=== PATIENT | male | born 1950 | race Caucasian/White ===

== ENCOUNTER 2018-05-25 13:32 | Inpatient (IN) | payer OTHER, MEDICARE ==
[~2018-05-25] VITALS: Ht 185.4 cm; Wt 104.6 kg
[2018-05-25 13:33] VITALS: BP 117/57
[2018-05-25 15:09] LABS: BASOPHILS 0.7 % (0.0-2.0); EOSINOPHILS 4.2 % (0.0-3.0); HEMATOCRIT 31.7 % (42.0-52.0); HEMOGLOBIN 10.2 gm/dL (14.0-18.0); LYMPHOCYTES 14.7 % (24.0-44.0); MCH 24.4 pg (26.0-34.0); MCHC 32.1 g/dL (28.0-37.0); MCV 76.1 fL (80.0-100.0); MONOCYTES 9.1 % (1.0-8.0); PLATELET COUNT 245 thou/uL (150-400); POLYS 71.3 % (36.0-66.0); RBC 4.17 mil/uL (4.50-6.00); RDW 18.8 % (10.5-14.5)
[2018-05-25 15:16] LABS: CALCIUM 9.2 mg/dL (8.5-10.1); CREATININE 0.8 mg/dL (0.7-1.3); POTASSIUM 4.5 mmol/L (3.5-5.1)
[2018-05-25 15:21] LABS: ALBUMIN 2.9 g/dL (3.4-5.0); TOTAL BILIRUBIN 0.2 mg/dL (<0.1-1.0); TOTAL PROTEIN 6.7 g/dL (6.4-8.2)
[2018-05-25 16:03] VITALS: BP 118/56
[2018-05-25] MEDS ORDERED: LIORESAL 10 MG10 MG PO (16:06)
[2018-05-25] MEDS ORDERED: ENOXAPARIN40 MG/0.1 SUBQ (16:06)
[2018-05-25] MEDS ORDERED: VITAMIN C500 M1 PO (16:06)
[2018-05-25] MEDS ORDERED: CARDIZEM CD240 MG PO (16:06)
[2018-05-25] MEDS ORDERED: PROBIOTIC1 EAC1 PO (16:07)
[2018-05-25] MEDS ORDERED: GENTAMICIN 0.1%15 G2 TOP (16:07)
[2018-05-25] MEDS ORDERED: FEOSOL325 M1 PO (16:07)
[2018-05-25] MEDS ORDERED: IPRATROPIU0.2 MG/1 M INH (16:07)
[2018-05-25 16:08] LABS: URINE BILIRUBIN NEGATIVE (Negative); URINE BLOOD 1+ (Negative); URINE CLARITY CLEAR; URINE COLOR YELLOW; URINE GLUCOSE-RANDOM* NEGATIVE (Negative); URINE KETONES NEGATIVE (Negative); URINE NITRITE-REFLEX NEGATIVE (Negative); URINE PROTEIN (DIPSTICK) 1+ (Negative); URINE SPECIFIC GRAVITY 1.015 (1.005-1.035); URINE UROBILINOGEN 0.2 E.U./dl (0.2-1.0)
[2018-05-25] MEDS ORDERED: LISINOPRIL10 MG PO (16:08)
[2018-05-25] MEDS ORDERED: OXYBUTYNIN 5 MG5 M2 PO (16:08)
[2018-05-25] MEDS ORDERED: SANTYL OINTMENT30 G1 TRANSDERM (16:08)
[2018-05-25] MEDS ORDERED: TYLENOL325 MG PO (16:09)
[2018-05-25] MEDS ORDERED: THERA TABLET400 MCG PO (16:09)
[2018-05-25 16:11] LABS: URINE LEUKOCYTES-REFLEX 3+ (Negative)
[2018-05-25 16:21] LABS: AMORPHOUS URATES Moderate /LPF (None Seen); CASTS None Seen /LPF (None Seen); MUCUS >6 Heavy strn/LPF (None Seen); SQUAMOUS >10 Many /LPF (0-3); WBC CLUMPS Few (None Seen)
[2018-05-25 16:37] VITALS: BP 112/40
[2018-05-25 17:12] VITALS: BP 136/57
[2018-05-25 19:39] VITALS: BP 135/58
[2018-05-26 00:32] VITALS: BP 134/67
[2018-05-26 05:28] VITALS: BP 108/56
--- NOTE | 2018-05-26 07:03 | NUR ---
ASSUMED PT CARE AT 1900 WITH NO SIGN OF DISTRESS.PT IS STABLE, SCHEDULED MED ADMINISTERED TO PT. DENES ANY NEEDS AT THIS TIME, VITAL SIGNS STABLE PICTURES OF WOUNDS TAKEN. DENIES ANY FUTHER NEEDS AT THIS TIME
[2018-05-26 08:04] VITALS: BP 112/60
--- NOTE | 2018-05-26 09:53 | NUR ---
Nutrition: Assess d/t consult for malnutrition. Pt admitted for decubitus ulcers; hx of paraplegia, HTN. Pt denies any recent weight loss and states his appetite has been very good. Discussed trying Yadiel and Ensure Enlive, pt is agreeable. Pt provided food preferences; provided alternative menu and instructed pt on ordering meals. Will order supplements. With nutrition interventions in place, consider low risk.
--- NOTE | 2018-05-26 12:25 | NUR ---
PT ADMITTED RELATED TO INFECTED R HIP WOUND. CM REVIEWED CHART AND SPOKE WITH CARE TEAM. CM MET WITH PT AT BEDSIDE THIS DAY. PT IS A&OX4. CM ROLE INTRODUCED. 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 PT INDICATED THAT BEFORE THAT HE HAD LIVED IN A HOUSE ALONE WITH RAMPS TO ENTER. PT INDICATED HE HAD USED A BATTERY POWERED WHEELCHAIR TO ASSIST WITH MOBILITY SIX SIGMA BLACK TRAINER. 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 PT INDICATED THAT HE HAD [facility] IN [facility] WHERE HE LIVES. PT INDICATED THAT HE HAS FRIENDS WHO ASSIST HIM WITH HOUSE CLEANING AND RUNNING ERRANDS. PT INDICATED THAT HE WOULD BE AGREEABLE WITH RETURNING TO [facility] IF NEEDED UPON DC OTHERWISE RETURN HOME. CLINICAL UPDATE SENT TO [facility]. CM TO FOLLOW INDICATED WITH DC PLANNING.
[2018-05-26 15:05] VITALS: BP 137/67
--- NOTE | 2018-05-26 16:34 | NUR ---
WOUND CONSULT: PT. SEEN TODAY BY DR. ESTEVEZ AND MYSELF. PT. WAS SENT IN FOR WOUND EVLAUATION. PT. HAS STAGE 4 PRESSURE ULCERS TO HIS SACRUM, LEFT AND RIGHT POSTERIOR TROCHANTER. DEHISCED FLAP TO POSTERIOR LEFT THIGH. PT. WAS SEEN BY DR. WALKER AND WILL BE GOING TO THE OR ON TUESDAY FOR SURGICAL DEBRIDEMENT. RECOMMENDATIONS: WOUND CARE TO ALL WOUNDS: GENTLY CLEANSE AREA WITH WOUND CLEANSER OR NORMAL SALINE, PACK WITH DAKIN MOIST KERLIX, COVER WITH ABD, SECURE WITH TAPE, COMPLETE CARES BID. TURN Q2 HOURS KEEP PT. OFF WOUNDS MUCH POSSIBLE KEEP ON MONTRELL MATRESS. PT. AND STAFF NURSE WERE INSTRUCTED ON PLAN OF CARE.
--- NOTE | 2018-05-26 19:07 | NUR ---
QUIET UNEVENTFUL DAY. WOUND CARE CHANGED DRESSINGS ON DECUBITUS ULCERS. TURNED Q2H. MAIN COMPLAINT IS RIGHT SHOULDER PAIN. GOOD URINE OUTPUT. SUPRAPUBIC CATH STILL LEAKING. CHANGED DRESSING. COLOSTOMY INTACT WITH MODERATE AMOUNT OF CARMEN LIKE STOOL NOTED. BUNNY BOOTS ON FEET. PLACED ON LOW AIR LOSS MATTRESS. DR. WALKER VISITED AND PLAN IS TO TAKE PATIENT TO OR TUESDAY FOR DEBRIDEMENT OF SACRAL ULCER. FALL PRECAUTIONS IN PLACE.
--- NOTE | 2018-05-26 19:19 | NUR ---
QUIET UNEVENTFUL DAY. TURNED Q2H. IN GOOD SPIRITS. CONTINUED IV ANTIBIOTICS. VANCOMYCIN STARTED AT 1100, HOWEVER IV KEPT BEEPING AND DELAYED COMPLETION. MAIN COMPLAINT RIGHT SHOULDER PAIN. WOUND CARE CHANGED ALL DECUBITUS DRESSINGS. SUPRAPUBIC CATHETER LEAKING. GOOD URINE OUTPUT NOTED. TOLERATING DIET WELL. BUNNY BOOTS ON. VERY PLEASANT AND COOPERATIVE. DR. WALKER ROUNDED AND SAID HE PLANS ON TAKING PATIENT TO SURGERY ON TUESDAY FOR DEBRIDEMENT. FALL PRECAUTIONS IN PLACE.
[2018-05-26 19:32] VITALS: BP 116/72
[2018-05-27 04:50] VITALS: BP 118/71
[2018-05-27 08:52] VITALS: BP 126/51
[2018-05-27 16:31] VITALS: BP 106/72
[2018-05-27 19:08] VITALS: BP 125/52
[2018-05-28 03:22] VITALS: BP 121/55
--- NOTE | 2018-05-28 06:21 | NUR ---
A/O, calm and pleasant; c/o pain in shoulders, pain medication given and worked; dressing changed, open sore in the scrotum was found, will pass this on to the day nurse. vss, afebrile. no n/v.
[2018-05-28 08:52] VITALS: BP 102/54
[2018-05-28 15:08] VITALS: BP 123/56
[2018-05-28 19:54] VITALS: BP 112/83
[2018-05-29 04:29] VITALS: BP 119/56
--- NOTE | 2018-05-29 06:49 | NUR ---
PATIENTS CARES WERE ASSUMED AT SHIFT CHANGE. PATIENT WAS ASSESSED AND MEDS WERE PASSED. PATIENT HAS BEEN NPO SINCE MIDNIGHT. HE IS GOING FOR A DEBRIEDMENT THIS MORNING. HOURLY ROUNDING WAS DONE. PATIENT DID APPER TO BE SLEEPING. PATIENT IS A PARA AND IS A TURN 2Q. BED IS IN A LOW AND LOCKED POSITION. THE BED ALARM IS ON
[2018-05-29 07:39] VITALS: BP 115/54
--- NOTE | 2018-05-29 08:19 | HC ---
[facility] [place] [address] CONSULTATION Name: ROSSY FOLEY Room #: 456-P ADM IN M.R.#: [id number] Admission: 05/25/18 ������������������ Attend Phys: Darshan Greenberg MD Discharge: ������������������ Date of : 46 Report #: [id number] THIS REPORT FOR: //name// CC: Carlyn Greenberg DATE OF SERVICE: 05/26/2018 CHIEF COMPLAINT: Pelvic pressure ulcerations. HISTORY OF PRESENT ILLNESS: This is a 68-year-old male patient whom we have followed intermittently in the long-term care setting. He has had a previous flap to his left posterior thigh that is partially dehisced. He, however, has developed additional pressure ulcerations to the posterior trochanteric regions and sacral region. There was palpable bone in the base and he was referred for wound care for further evaluation. He had his original flap done at . He was sent to for evaluation this week. They declined to offer any additional input to his care and returned him to the nursing care facility. The patient denies any pain at this time. He is aware of the worsening ulcerations and is agreeable to ongoing care including additional surgical debridement. PAST MEDICAL HISTORY: Positive for history of T3 paraplegia. He has recurring pressure ulcerations, hypertension, lower extremity spasticity, neurogenic bladder. He has previous colostomy. SOCIAL HISTORY: Positive for use of chewing tobacco. He does use marijuana and admits to alcohol use on special occasions. FAMILY HISTORY: Noncontributory. ALLERGIES: INCLUDE LATEX AND PENICILLIN. MEDICATIONS: Include vitamin C, Lioresal, Cardizem, Lovenox, Feosol, gentamicin ointment, Atrovent, probiotic, Zestril, oxybutynin, Santyl ointment, multivitamin with folic acid and Tylenol. REVIEW OF SYSTEMS: CONSTITUTIONAL: The patient denies fever, chills or weight loss. NEUROLOGICAL: The patient has T3 paraplegia with lower extremity spasticity. No new weakness, numbness, tingling. EYES: The patient denies visual changes, redness or drainage. ENT: The patient denies earache, nasal drainage, sore throat. CARDIOVASCULAR: The patient denies chest pain or palpitations or diaphoresis. PULMONARY: The patient denies cough or shortness of breath. GASTROINTESTINAL: The patient denies nausea, vomiting, diarrhea, abdominal pain. [address] [address] CONSULTATION Name: ROSSY FOLEY Room #: 456-P ADM IN M.R.#: [id number] Admission: 05/25/18 ������������������ Attend Phys: Darshan Greenberg MD Discharge: ������������������ Date of : 46 Report #: [id number] ORTHOPEDIC: The patient is aware of the pressure ulcerations to the pelvic region. He denies any pain associated with those. Other systems in a 14-point review of systems are negative. PHYSICAL EXAMINATION: VITAL SIGNS: At this time include temperature 97.9, pulse 83, respiratory rate of 18, blood pressure 137/67. GENERAL: This is a chronically ill-appearing male patient who appears to be in minimal discomfort. HEENT: Head normocephalic. Nose and throat are clear. NECK: Supple. LUNGS: Clear. HEART: Regular rhythm. ABDOMEN: Soft. Bowel sounds are present. EXTREMITIES: Examination of the pelvic region demonstrates what appears to be a surgical wound in the location of her previous flap involving the left posterior thigh. It is relatively clean, granulating and is not infected. No exposure of deep structures. He has stage 4 pressure ulcerations to the posterior trochanters bilaterally. There is palpable bone on the left side, I am not able to palpate bone on the right. There is also stage 4 presacral pressure ulcer with moderate necrotic material present. Minimal odor at this time. Lower extremities show edema, but no other breakdown. LABORATORY DATA: Includes sodium 140, potassium 4.5, chloride 104, CO2 of 30, BUN 6, creatinine is 0.8, glucose 128, albumin is 2.9. White blood cell count of 7000 with a hemoglobin of 10.2, hematocrit of 31.7. CLINICAL IMPRESSION: 1. Stage 4 pressure ulcerations to the posterior trochanters bilaterally sacrum and then residual surgical wound left posterior thigh from previous flap. 2. T3 paraplegia. 3. Mild protein-calorie malnutrition. 4. Bilateral posterior trochanteric wound infections. RECOMMENDATIONS: At this point in time, the patient will be placed on low air loss mattress. He will need q. 2-hour turning and repositioning. Recommend a quarter strength Dakin's moist gauze dressings in a short-term, we will obtain surgical consultation. He will require surgical debridement. He may require additional flap surgery in the future, although in the short term, we will try to manage him with a thorough debridement, antibiotic therapy based on surgically obtained cultures and perhaps transition to a wound VAC once we have [address] [address] CONSULTATION Name: ROSSY FOLEY Room #: 456-P ADM IN M.R.#: [id number] Admission: 05/25/18 ������������������ Attend Phys: Darshan Greenberg MD Discharge: ������������������ Date of : 46 Report #: [id number] better exposure. The patient is agreeable with this plan of care. I appreciate being asked to see him in consultation. ��������������������������������������������� <ELECTRONICALLY SIGNED> ���������������������������������������� By: Elbert Steward MD ��������������������������������������������� 05/29/18 0819 [id number] 0004 Elbert Steward MD /nt
[2018-05-29 12:15] VITALS: BP 111/64
--- NOTE | 2018-05-29 12:16 | NUR ---
Patient off unit this morning for schedule wound debridement in surgery. Returned to floor from PACU at 1215. Awake, alert, room air. C/o right shoulder pain. Diet advanced without difficulty. Post-op dressings intact, orders to keep in place until seen by wound care team tomorrow.
[2018-05-29 17:53] VITALS: BP 133/61
--- NOTE | 2018-05-29 18:41 | NUR ---
Patient rested comfortably for remainder of the day post debridement. Tolerating oral food and drink without difficulty. Surgical dressings not removed per orders, will be seen by wound care team tomorrow. Patient is eager to return to assisted. Report given to oncoming shift.
[2018-05-29 20:15] VITALS: BP 116/56
[2018-05-30 03:55] VITALS: BP 117/53
--- NOTE | 2018-05-30 05:56 | NUR ---
PATIENT ALERT AND ORIENTED X4. PARAPLEGIC. DRESSING ON SACRUM, TROCHANTERS, AND HIP D/I. SUPRAPUBIC PATENT YELLOW URINE WITH SEDIMENT. C/O PAIN X1, MED GIVEN. IV PATENT BUT HURTS WHEN FLUSHED. SLEPT MOST OF NIGHT.
[2018-05-30 08:14] VITALS: BP 113/47
--- NOTE | 2018-05-30 12:10 | NUR ---
[employer] sent clinical updates to [facility], noting a possible discharge today or tomorrow. DP contacted admissions at [facility] to let them know to expect the updates.
--- NOTE | 2018-05-30 13:04 | NUR ---
WOUND FOLLOW UP; ROUNDING WITH DR MARSHALL GALLEGOS. THE BILATERAL TROCANTER, SACRAL AND THIGH AREAS WERE ASSESSED POST SURGICAL DEBRIDEMENT. WOUNDS HAVE MUCH LESS WOUND DEBRIS, SLOUGH, NECROSIS. RECOMMENDATION; CONTINUE WITH CURRENT TREATMENT. CASE MANAGEMENT TO PLAN DISCHARGE TO LTC FAUCILITY. DISCUSSED WITH RAMIRO
[2018-05-30 14:00] VITALS: BP 123/45
--- NOTE | 2018-05-30 16:48 | NUR ---
PT HAD WOUND DEBRIEDMENT YESTERDAY. UPDATED CLINICALS WERE FAXED TO [facility]. CM NOTIFIED ADMISSIONS THAT PT MAY LIKELY BE MEDICALLY STABLE TO DISCHARGE TOMORROW. CM FOLLOWING DC PLANNING.
--- NOTE | 2018-05-30 18:08 | NUR ---
PT STABLE THROUGHOUT SHIFT. PT HAD NO COMPLAINTS WITH EXCETION OF SHOULDER PAIN. TREATED WITH MEDICATION. PT RESTING COMFORTABLY.
[2018-05-30 19:45] VITALS: BP 132/63
--- NOTE | 2018-05-31 02:18 | NUR ---
PATIENT AOX4 MAKES NEEDS KNOWN. PATIENT HAS WOUNDS ON LEFT THIGH, RIGHT AND LEFT BUTTOCKS, DRESSING C/D/I. SUPRA PUBIC CATH DONE THIS SHIFT. PATIENT HAS A COLOSTOMY AND WAS REQUESTING BOWEL STIMULATION AFTER BREAKFAST. PATIENT HAS GREENISH BOWEL, AND WAS NOT ABLE TO ASSESS THE STOMA. PATIENT TURNED Q 2HOURS. PATIENT DENIED PAIN OR DISCOMFORT. PATIENT HAD AN IV ON LFA THAT INFILTRATED. NEW ONE ON LAC. PATIENT IN BED ASLEEP AT THIS TIME BREATHING REGULAR AND UNLABOURED.
[2018-05-31 04:27] VITALS: BP 114/47
[2018-05-31 07:25] VITALS: BP 100/58
[2018-05-31 11:46] VITALS: BP 112/62
[2018-05-31 13:13] VITALS: BP 132/62
[2018-05-31] MEDS ORDERED: LEVAQUIN 500 M500 M2 PO (13:22)
--- NOTE | 2018-05-31 14:13 | NUR ---
dp faxed dc orders to [facility], patient will be picked up today [facility] van at 4pm. dp contacted admissions to let them know dp were being faxed, Amparo clarke/alex arranged ride and is calling family. cc being made
--- NOTE | 2018-05-31 14:58 | NUR ---
CARE TEAM INDICATED THAT PT IS MEDICALLY STABLE TO DISCHARGE TO [facility] THIS DAY. PT IS AWARE AND AGREEABLE. CHART COPY ORDERED AND ORDERS FAXED. CM CALLED PT'S SON AND LEFT MESSAGE INDICATING PT RETURN TO [facility]. [facility] ARRANGED FOR 1600. REPORT TO BE CALLED TO . NO OTHER CM INTERVENTION INDICATED AT THIS TIME. CASE CLOSED.
--- NOTE | 2018-05-31 16:40 | NUR ---
PT STABLE THROUGHOUT SHIFT. PT DISCHARGED BACK TO [facility]. DRESSINGS CHANGED TODAY. REPORT CALLED TO [facility]. PT LEFT UNIT VIA [facility].
--- NOTE | 2018-05-31 18:29 | NUR ---
PT DISCHARGED TO [facility]. PT LEFT A&OX4, VSS WITH NO C/O PAIN OR SIGNS OF DISTRESS. IV D/C'D PT HAS ALL BELONGINGS. WOUND DRESSING CHANGED TODAY AND WERE INTACT.
--- NOTE | 2018-06-02 15:24 | PATH ---
[facility] [address] [place] [address] PATHOLOGY RPT PROCEDURE Name: ROSSY ALAN Room #: 456-P DIS IN M.R.#: [id number] ������������������ Admission: 05/25/18 ������������������ Date of : 46 Discharge: 05/31/18 Report #: [id number] Path Case #: [id number] [facility] Accession Number: [id number] . 01 Material submitted: . PART A: LEFT GREATER TROCHANTER WOUND TISSUE PART B: SACRAL WOUND TISSUE PART C: RIGHT GREATER TROCHANTER WOUND TISSUE . 01 Clinical history: . Debridement decubitus ulcer, sacral wound, hip wound . 02 Diagnosis: A. Left greater trochanter wound tissue, debridement: - Marked acute inflammation associated with abscess formation and degenerative changes. - Fragments of bone associated with marked acute inflammation. . B. Sacral wound tissue, debridement: - Ulceration, hemorrhage, and marked acute inflammation extending into underlying subcutaneous tissue. - Adjacent squamous epithelium showing pseudo-epitheliomatous changes. . C. Right greater trochanter wound tissue, debridement: - Ulceration and gangrenous necrosis associated with marked acute inflammation extending to underlying subcutaneous tissue. . 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 02 Electronically signed: . Zee Chau MD, Pathologist NPI- [id number] . 01 Gross description: . A. The specimen is received in formalin, labeled "Rossy Alan, left greater trochanter wound tissue", consists of a yellow-white, indurated segment measuring 3.5 x 3.0 x 2.5 cm that consist off a ulcer measuring 2.5 x 2.4 cm with a vargas-black, necrotic ulcer bed. Also received is an irregular fragment of vargas-white, indurated tissue measuring 2.7 x 1.6 x 1.0 cm. Digital Manager tissue is submitted in A1-A2 (A1 = ulcer and A2 = additional tissue) . B. The specimen is received in formalin, labeled "Rossy Alan, sacral wound tissue", are two irregular fragments of vargas-black, necrotic, indurated tissues measuring 3.6 by a 3.5 x 2.2 cm and 4.5 x 2.0 x 0.7 cm. Digital Manager tissue is submitted in B1-B2[place] [address] PATHOLOGY RPT PROCEDURE Name: ROSSY ALAN Room #: 456-P DIS IN M.R.#: [id number] ������������������ Admission: 05/25/18 ������������������ Date of : 46 Discharge: 05/31/18 Report #: [id number] Path Case #: [id number] . C. The specimen is received in formalin, labeled "Rossy Alan, right greater trochanter wound tissue", is a roughly circular necrotic skin measuring 5.2 x 4.4 cm with underlying subcutaneous tissue measuring up to 2.2 cm. The ulcer bed is black-brown and necrotic. Digital Manager tissue is submitted in C1-C2. ([facility]; 05/29/2018) SHS/SHS . 02 Pathologist provided ICD-10: L89.159, I96, L08.9 . 02 CPT . 261858, 906361, 759256 Specimen Comment: Report sent to ,DR TRUONG / DR SOLIS Specimen Comment: A duplicate report has been generated due to demographic updates. Performed at: [address], [place] [id number] MD Jeromy Cisse MD Phone: [phone] Performed at: [address] [id number] MD Zee Chau MD Phone: [phone]
== END 2018-05-31 18:40 | DRG 981 ==
LOC: ER 13:32 → 4W 15:34 → EROBS 15:34 → 4W 16:37
PROVIDERS: Emergency Medicine; ADMIT Internal Medicine
DX: L89.224 Pressure ulcer of left hip, stage 4 (principal); E43 Unspecified severe protein-calorie malnutrition; G82.20 Paraplegia, unspecified; E44.1 Mild protein-calorie malnutrition; K59.2 Neurogenic bowel, not elsewhere classified; N39.0 Urinary tract infection, site not specified; L89.154 Pressure ulcer of sacral region, stage 4; I10 Essential (primary) hypertension; F17.290 Nicotine dependence, other tobacco product, uncomplicated; D63.8 Anemia in other chronic diseases classified elsewhere; L89.214 Pressure ulcer of right hip, stage 4; N32.81 Overactive bladder; N31.9 Neuromuscular dysfunction of bladder, unspecified; Z93.3 Colostomy status; Z68.30 Body mass index [BMI] 30.0-30.9, adult; Z79.899 Other long term (current) drug therapy; Z88.0 Allergy status to penicillin; Z91.040 Latex allergy status
CPT/HCPCS: 10040; 50010; 50101; 50386; 50403; 57119; 57120; 62110; 62900; 70005

== ENCOUNTER → 2018-09-25 | Outpatient (CLI) | payer OTHER, MEDICARE ==
[~2018-09-25] MED LIST: CARDIZEM CD240 MG PO; ENOXAPARIN40 MG/0.1 SUBQ; FEOSOL325 M1 PO; GENTAMICIN 0.1%15 G2 TOP; IPRATROPIU0.2 MG/1 M INH; LEVAQUIN 500 M500 M2 PO; LIORESAL 10 MG10 MG PO; LISINOPRIL10 MG PO; OXYBUTYNIN 5 MG5 M2 PO; PROBIOTIC1 EAC1 PO; SANTYL OINTMENT30 G1 TRANSDERM; THERA TABLET400 MCG PO; TYLENOL325 MG PO; VITAMIN C500 M1 PO
== END ==
LOC: HYPER 06:37
DX: E11.622 Type 2 diabetes mellitus with other skin ulcer (principal); L89.154 Pressure ulcer of sacral region, stage 4; L98.491 Non-pressure chronic ulcer of skin of other sites limited to breakdown of skin; L89.623 Pressure ulcer of left heel, stage 3; L97.421 Non-pressure chronic ulcer of left heel and midfoot limited to breakdown of skin; E11.621 Type 2 diabetes mellitus with foot ulcer; L98.411 Non-pressure chronic ulcer of buttock limited to breakdown of skin; L89.323 Pressure ulcer of left buttock, stage 3; L89.313 Pressure ulcer of right buttock, stage 3; L89.224 Pressure ulcer of left hip, stage 4; I10 Essential (primary) hypertension; G82.21 Paraplegia, complete; G47.33 Obstructive sleep apnea (adult) (pediatric)

== ENCOUNTER → 2018-10-12 | Outpatient (CLI) | payer OTHER, MEDICARE | LOC: HYPER 06:23 | DX: E11.622 Type 2 diabetes mellitus with other skin ulcer (principal); L89.154 Pressure ulcer of sacral region, stage 4; L89.893 Pressure ulcer of other site, stage 3; L89.224 Pressure ulcer of left hip, stage 4; L98.491 Non-pressure chronic ulcer of skin of other sites limited to breakdown of skin; L89.313 Pressure ulcer of right buttock, stage 3; L89.323 Pressure ulcer of left buttock, stage 3; L98.411 Non-pressure chronic ulcer of buttock limited to breakdown of skin; L89.623 Pressure ulcer of left heel, stage 3; L97.421 Non-pressure chronic ulcer of left heel and midfoot limited to breakdown of skin; E46 Unspecified protein-calorie malnutrition; G47.33 Obstructive sleep apnea (adult) (pediatric); G82.21 Paraplegia, complete; I10 Essential (primary) hypertension ==